=== PATIENT | male | born 1970 | race American Indian/Alaskan Native ===

== ENCOUNTER 2017-09-06 22:34 | Inpatient (IN) | payer MEDICAID, OTHER ==
[2017-09-06 23:00] LABS: Basophils # (Auto) 0.2 K/mm3 (0.0-0.1); Basophils % (Auto) 2.2 % (0.0-1.8); Eosinophils # (Auto) 0.1 K/mm3 (0.0-0.4); Hematocrit 43.2 % (35.5-45.6); Lymphocytes # (Auto) 2.7 K/mm3 (1.2-5.4); Lymphocytes % (Auto) 29.6 % (13.4-35.0); Mean Corpuscular HGB Conc 33 % (32-34); Mean Corpuscular Hemoglobin 27 pg (28-32); Mean Corpuscular Volume 84 fl (84-94); Monocytes # (Auto) 0.5 K/mm3 (0.0-0.8); Monocytes % (Auto) 5.3 % (0.0-7.3); Platelet Count 314 K/mm3 (140-440); Red Blood Count 5.15 M/mm3 (3.65-5.03); Red Cell Distribution Width 14.7 % (13.2-15.2)
--- NOTE | 2017-09-06 23:08 | Emergency Department Report ---
HPI - General Chief Complaint: Neuro Symptoms/Deficit Time Seen by Provider: 09/06/17 22:51 - HPI HPI: Room 1 The patient is a 47-year-old male presenting with chief complaint of chest pain and left-sided weakness. The patient got into his car in his usual state of health approximately 15 minutes later started developing chest pain and difficulty getting out of his car as he experienced weakness on his left side. EMS was called at 21:40 and the patient states he was in his usual state of health approximately 15 minutes prior to that. Patient was of numbness and weakness on the left side in addition to chest pain. 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) Hx of Cancer: Yes (pancreatic CA) Hx Seizures: Yes - Surgical History Past Surgical History?: No - Family History Family history: no significant - Social History Smoking Status: Never Smoker Substance Use Type: None (denies illicit drug use) - Medications Home Medications: Home Medications Medication Instructions Recorded Confirmed Last Taken Type HYDROcodone/APAP 7.5-325 [[place] 1 each PO Q6HR PRN #20 tablet 03/26/14 Unknown Rx 7.5/325 mg] Lisinopril [Zestril TAB] 25 mg PO DAILY 03/26/14 03/26/14 Unknown History Sertraline HCl [Zoloft] 10 mg PO DAILY 03/26/14 03/26/14 Unknown History ED Review of Systems ROS: Stated complaint: CP Other details as noted in HPI Cardiovascular: chest pain Neurological: weakness, paresthesias Physical Exam - Physical Exam Vital Signs: Vital Signs 09/06/17 09/06/17 09/06/17 22:37 22:39 22:46 Pulse Rate 105 H 84 84 Respiratory 26 H 22 24 Rate Physical Exam: GENERAL: The patient is well-developed well-nourished male lying on stretcher appearing to be in mild discomfort. [] HEENT: Normocephalic. Atraumatic. Extraocular motions are intact. Patient has moist mucous membranes. NECK: Supple. Trachea midline CHEST/LUNGS: Clear to auscultation. There is no respiratory distress noted. HEART/CARDIOVASCULAR: Regular. There is no tachycardia. There is no gallop rub or murmur. ABDOMEN: Abdomen is soft, nontender. Patient has normal bowel sounds. There is no abdominal distention. SKIN: There is no rash. There is no edema. There is no diaphoresis. NEURO: The patient is awake, alert, and oriented. The patient is cooperative. Cranial nerves II through XII grossly intact with exception of decreased sensation of the right face (V1, V2, V3 distribution). The patient has somewhat disjointed speech. Patient experiences ataxia with left upper extremity and left lower extremity. Decreased sensation left lower extremity. Patient only able to hold left lower extremity at 30 for 3 seconds before falling back to bed MUSCULOSKELETAL: There is no evidence of acute injury. NIHSS= 6 LOC a. (+)Alert= 0 Not alert but arousable to minor stimuli=1 Not alert requires repeated or strong stimuli to move= 2 Responds only reflex motor or unresponsive=3 b. asks month and age (+)answers both correctly= 0 answers one correctly= 1 answers neither correctly= 2 Best Gaze normal= 0 abnormal in one or both but forced deviation or total paresis absent= 1 forced deviation or total gaze paresis= 2 Visual no visual loss= 0 partial hemianopia= 1 complete hemianopia= 2 bilateral hemianopia= 3 Facial Palsy normal= 0 minor paralysis= 1 partial paralysis= 2 complete paralysis= 3 Motor Arm no drift= 0 drift before 10 secs but doesnt hit bed= 1 some effort against gravity= 2 no effort against gravity= 3 no movement= 4 Motor leg no drift= 0 drift before 5 secs but doesnt hit bed= 1 (+)drifts to bed before 5 secs= 2 no effort against gravity= 3 no movement= 4 Limb ataxia absent=0 present in one limb= 1 (+)present in two limbs= 2 Sensory normal= 0 (+)mild sensory loss= 1 severe (unaware of being touched)= 2 Best language (+)mild/some loss of fluency= 1 severe= 2 mute= 3 Dysarthria normal= 0 slurs some words= 1 severe/unintelligible= 2 Extinction and Inattention no abnormality= 0 visual, tactile, auditory or personal inattention= 1 profound (doesnt recognize own hand or orients to only one side= 2 ED Course Vital Signs 09/06/17 09/06/17 09/06/17 22:37 22:39 22:46 Pulse Rate 105 H 84 84 Respiratory 26 H 22 24 Rate - Reevaluation(s) Reevaluation #1: 09/07/17 00:03 Patient stating he does not wish to stay in the hospital. Patient requesting to be transferred to [facility] since that is where he receives most of his care. - Consultations Consultation #1: 09/06/17 23:10 Tele-neurology paged 09/06/17 23:24 Case discussed with neurologist Dr Jaime- matthew evjannet 09/07/17 00:01 Case discussed with neurologist and family- family refusing TPA Consultation #2: 09/07/17 00:03 [facility] called 09/07/17 00:28 Case discussed with the ED physician Dr. Patel- has spoken with patient's family member. Patient now agrees to stay here at [facility] ED Medical Decision Making - Lab Data Result diagrams: 09/06/17 10:45 09/06/17 10:45 Laboratory Tests 09/06/17 09/06/17 09/06/17 10:45 10:45 10:45 WBC 9.1 RBC 5.15 H Hgb 14.0 Hct 43.2 MCV 84 MCH 27 L MCHC 33 RDW 14.7 Plt Count 314 Lymph % (Auto) 29.6 [place] % (Auto) 5.3 Eos % (Auto) 1.0 Baso % (Auto) 2.2 H Lymph # 2.7 [place] # 0.5 Eos # 0.1 Baso # 0.2 H Seg Neutrophils % 61.9 Seg Neutrophils # 5.6 PT 12.7 INR 0.91 APTT 30.4 Thrombin Time 15.9 Sodium 140 Potassium 4.0 Chloride 101.7 Carbon Dioxide 24 Anion Gap 18 BUN 9 Creatinine 1.0 Estimated GFR > 60 BUN/Creatinine Ratio 9 Glucose 87 Calcium 8.8 Total Creatine Kinase 223 H CK-MB (CK-2) 3.3 CK-MB (CK-2) Rel Index 1.4 Troponin T < 0.010 - EKG Data -: EKG Interpreted by Mo EKG shows normal: sinus rhythm Rate: normal - EKG Data When compared to previous EKG there are: previous EKG unavailable Interpretation: other (no ischemic changes seen) - Radiology Data Radiology results: report reviewed (CT head, CT chest), image reviewed (CT head , chest x-ray, CT chest) interpreted by me: Chest x-ray-no focal infiltrates, no pneumothorax FINAL REPORT PROCEDURE: CT ANGIO CHEST TECHNIQUE: Computerized tomographic angiography of the chest was performed after the IV injection of iodinated nonionic contrast including image processing. The image data was postprocessed using 2-dimensional multiplanar reformatted (MPR) and 3-dimensional (MIP and/or volume rendered) techniques. HISTORY: chest pain, left-sided weakness COMPARISON: No prior studies are available for comparison. FINDINGS: Heart and pericardium: Normal. Thoracic aorta: Normal. Pulmonary vasculature: Normal. Lymph nodes: No enlarged thoracic lymph nodes. Lungs: Lungs are clear and expanded. There are no infiltrates, effusions or pneumothoraces.. Pleural space: No effusion, thickening, or pneumothorax. Musculoskeletal structures: No significant abnormality. Upper abdominal structures: No significant abnormality. IMPRESSION: There is no pulmonary embolism. There is no thoracic aortic aneurysm or dissection. The lungs are clear. Transcribed By: CO Dictated By: ANGELIC GRIGSBY MD Electronically Authenticated By: ANGELIC GRIGSBY MD Signed Date/Time: 09/07/17129 DD/ 9 TD/TT: 09/07/17129 FINAL REPORT PROCEDURE: CT HEAD/BRAIN WO CON TECHNIQUE: Computerized tomography of the head was performed without contrast material. HISTORY: dysarthria, left-sided weakness COMPARISON: No prior studies are available for comparison. FINDINGS: Skull and scalp: Normal. Paranasal sinuses: Normal. Ventricles and subarachnoid spaces: Normal. Cerebrum: No evidence of hemorrhage, acute infarction or mass . Cerebellum and brainstem: No evidence of hemorrhage, acute infarction or mass. Vasculature: Normal. Comments: None. IMPRESSION: Normal Examination Transcribed By: CO Dictated By: ANGELIC GRIGSBY MD Electronically Authenticated By: ANGELIC GRIGSBY MD Signed Date/Time: 09/06/172304 DD/ 04 TD/TT: 09/06/172304 - Differential Diagnosis CVA, ICH, dissection Critical care attestation.: If time is entered above; I have spent that time in minutes in the direct care of this critically ill patient, excluding procedure time. ED Disposition Clinical Impression: CVA (cerebral vascular accident), Altered mental status Disposition: -09 OP ADMIT IP TO THIS HOSP Is pt being admited?: Yes Does the pt Need Aspirin: Yes Condition: Serious Referrals: SONIA OSCAR MD [Primary Care Provider] - 3-5 Days Time of Disposition: 01:59 (hospitalist paged (Dr. Mi Ennis))
[2017-09-06 23:14] LABS: Creatine Kinase MB 3.3 ng/mL (0.0-4.0)
[2017-09-06 23:15] LABS: BUN/Creatinine Ratio 9; Blood Urea Nitrogen 9 mg/dL (9-20); Calcium 8.8 mg/dL (8.4-10.2); Hemolysis Index 4; INR 0.91 (0.87-1.13); Partial Thromboplastin Time 30.4 Sec. (24.2-36.6); Thrombin Time 15.9 Sec. (15.1-19.6)
[2017-09-07] MEDS ORDERED: MORPHINE IV ONE (00:26)
[2017-09-07] MEDS ORDERED: ZOFRAN IV ONE (00:26)
[2017-09-07] MEDS ORDERED: SUBLIMAZE IV ONE (00:40)
--- NOTE | 2017-09-07 01:35 | Cat Scan Report ---
FINAL REPORT PROCEDURE: CT ANGIO CHEST TECHNIQUE: Computerized tomographic angiography of the chest was performed after the IV injection of iodinated nonionic contrast including image processing. The image data was postprocessed using 2-dimensional multiplanar reformatted (MPR) and 3-dimensional (MIP and/or volume rendered) techniques. HISTORY: chest pain, left-sided weakness COMPARISON: No prior studies are available for comparison. FINDINGS: Heart and pericardium: Normal. Thoracic aorta: Normal. Pulmonary vasculature: Normal. Lymph nodes: No enlarged thoracic lymph nodes. Lungs: Lungs are clear and expanded. There are no infiltrates, effusions or pneumothoraces.. Pleural space: No effusion, thickening, or pneumothorax. Musculoskeletal structures: No significant abnormality. Upper abdominal structures: No significant abnormality. IMPRESSION: There is no pulmonary embolism. There is no thoracic aortic aneurysm or dissection. The lungs are clear.
--- NOTE | 2017-09-07 01:59 | XRay Report ---
FINAL REPORT PROCEDURE: XR CHEST 1V AP TECHNIQUE: Chest radiograph anteroposterior view. CPT 18333 HISTORY: chest pain COMPARISON: No prior studies are available for comparison. FINDINGS: Heart: Enlarged Mediastinum/Vessels: Normal. Lungs/Pleural space: There is suboptimal inspiration. There are no infiltrates, effusions or pneumothoraces.. Bony thorax: No acute osseous abnormality. Life support devices: None. IMPRESSION: No acute cardiopulmonary abnormality.
[2017-09-07] MEDS ORDERED: ZOFRAN IV PRN (04:50)
[2017-09-07] MEDS ORDERED: TYLENOL PO PRN (04:50)
[2017-09-07] MEDS ORDERED: SODIUM CHLORIDE FLUSH SYRINGE 10 ML IV PRN (04:50)
[2017-09-07] MEDS ORDERED: TYLENOL PR PRN (04:50)
[2017-09-07 05:45] LABS: Creatine Kinase MB 2.8 ng/mL (0.0-4.0)
--- NOTE | 2017-09-07 06:38 | History and Physical Report ---
History of Present Illness Date of examination: 09/07/17 Date of admission: 09/07/17 04:50 History of present illness: 46-year-old man with a history of previous CVA, residual right-sided weakness, hypertension, pancreatic cancer, seizure comes emergency room with complaints of left-sided weakness and slurred speech which started while he was in the emergency room. Telemetry neurologist was consulted, TPA was indicated but the family refused. He also complained of chest pain, described as a tightness, intermittent for a few seconds, intensity 5/10, radiating to the left arm. Admits to shortness of breath, no nausea vomiting, diaphoresis or palpitation Review of systems Constitutional: no weight loss, chills Ears, eyes, nose, mouth and throat: no nasal congestion, no nasal discharge, no sinus pressure, no vision change, no red eye. Neck: No neck pain or rigidity. Cardiovascular: no chest pain, palpitations Respiratory: No cough, shortness of breath Gastrointestinal: no abdominal pain, hematochezia Genitourinary : no dysuria, frequency , no hematuria Musculoskeletal: no joint swelling or muscle ache Integumentary: no rash, no pruritis Neurological: no parathesias, no numbness Endocrine: no cold or heat intolerance, no polyuria or polydipsia Hematologic/Lymphatic: no easy bruising, no easy bleeding, no gland swelling Allergic/Immunologic: no urticaria, no angioedema. PAST MEDICAL HISTORY:CVA, residual right-sided weakness, hypertension, pancreatic cancer, seizure PAST SURGICAL HISTORY: None SOCIAL HISTORY: Denies alcohol, tobacco, drugs FAMILY HISTORY: Hypertension Medications and Allergies Allergies Allergy/AdvReac Type Severity Reaction Status Date / Time Penicillins Allergy Severe Anaphylaxis Verified 09/07/17 06:17 Home Medications Medication Instructions Recorded Confirmed Last Taken Type HYDROcodone/APAP 7.5-325 [[place] 1 each PO Q6HR PRN #20 tablet 03/26/14 Unknown Rx 7.5/325 mg] Lisinopril [Zestril TAB] 25 mg PO DAILY 03/26/14 03/26/14 Unknown History Sertraline HCl [Zoloft] 10 mg PO DAILY 03/26/14 03/26/14 Unknown History Active Meds: Active Medications Acetaminophen (Tylenol) 650 mg PO Q4H PRN PRN Reason: Pain, Mild (1-3) Acetaminophen (Tylenol) 650 mg NM Q4H PRN PRN Reason: Pain, Mild (1-3) Aspirin (Aspirin) 325 mg PO QDAY ELAINE Enoxaparin Sodium (Lovenox) 30 mg SUB-Q QDAY ELAINE Ondansetron HCl (Zofran) 4 mg IV Q8H PRN PRN Reason: N/V unrelieved by Reglan Sodium Chloride (Sodium Chloride Flush Syringe 10 Ml) 10 ml IV PRN PRN PRN Reason: LINE FLUSH Exam - Physical Exam Narrative exam: Gen. appearance: Patient lying in bed, no apparent distress HEENT: Normocephalic, atraumatic, pupils equally round and reactive to light, extraocular movement intact, and no sclericterus,. No JVD or thyromegaly or nodule,neck supple, no carotid bruit ,mucous membranes moist, no exudate or erythema Heart: S1, S2, regular rate and rhythm Lungs: Clear to auscultation bilaterally, breathing comfortable Abdomen: Positive bowel sounds, nontender, nondistended, no organomegaly Extremity: No edema, cyanosis, clubbing Skin: No rash, nodules, warm, dry Neuro: Oriented 3, cranial nerves II-12 intact, speech is fluent, motor- poor effort and sensory intact - Constitutional Vitals: Temp Pulse Resp BP Pulse Ox 97.7 F 65 18 139/83 96 09/07/17 06:11 09/07/17 06:11 09/07/17 06:11 09/07/17 06:11 09/07/17 06:11 Results - Labs CBC & Chem 7: 09/06/17 10:45 09/06/17 10:45 Labs: Abnormal lab results 09/06/17 09/06/17 09/07/17 Range/Units 10:45 10:45 05:20 RBC 5.15 H (3.65-5.03) M/mm3 MCH 27 L (28-32) pg Baso % (Auto) 2.2 H (0.0-1.8) % Baso # 0.2 H (0.0-0.1) K/mm3 Total Creatine Kinase 223 H 187 H (55-170) units/L - Imaging and Cardiology CT scan - chest: report reviewed CT Scan - head: report reviewed Assessment and Plan Assessment CVA Chest pain Hypertension History of pancreatic cancer History of CVA Seizure Plan Admit to medicine Obtain MRI of the head, MRA, echo Do neuro checks, swallow screen [place] Work[employer] neurology, physical and occupational therapy Check cardiac enzymes Start aspirin, statin, DVT prophylaxis
[2017-09-07] MEDS ORDERED: LOVENOX SUB-Q SCH (10:00)
--- NOTE | 2017-09-07 11:10 | Magnetic Resonance Report ---
MRI OF THE BRAIN WITHOUT CONTRAST: HISTORY: Stroke PROCEDURE: Multiplanar, multisequence MR imaging of the brain without IV contrast was performed. FINDINGS: Compared to the CT head without contrast performed 09/06/17. On diffusion image 11, there are 2 tiny foci of subtle increased diffusion signal and decreased signal on the ADC map in the left alex. This could represent tiny areas of subacute ischemia. These areas measure less than 3 mm in diameter. The remaining brain parenchyma demonstrates normal signal on all sequences. No evidence for hemorrhage or mass. No chronic infarct or extra-axial fluid collection. The midline structures are central. The basal cisterns are patent. Normal ventricular size. The orbital cavities and sella turcica demonstrate no abnormality. The visualized paranasal sinuses and mastoid air cells are well aerated. IMPRESSION: 2 tiny foci subacute ischemia are suspected in the left alex as outlined above. Please correlate with the clinical presentation of the patient
--- NOTE | 2017-09-07 11:11 | Magnetic Resonance Report ---
MRA HEAD WITHOUT CONTRAST HISTORY: Stroke. [id number] imaging with MIP reformations of [place] is submitted. The arteries appear widely patent and free of hemodynamically significant stenosis, aneurysm or dissection. Large bilateral posterior commuting dictating arteries are identified. The bilateral P1 segments are hypoplastic but visualized bilaterally. IMPRESSION: Normal variant MRA of the head.
[2017-09-07] MEDS: ASPIRIN PO SCH (11:23)
[2017-09-07] MEDS: LOVENOX SUB-Q SCH (11:24)
[2017-09-07 11:46] LABS: Creatine Kinase MB 2.6 ng/mL (0.0-4.0)
--- NOTE | 2017-09-07 13:32 | Progress Note ---
Assessment and Plan Assessment and plan: Acute CVA. ? Non-fluent aphasia. F/U MRI/MRA of head. Follow up echocardiogram. Neurology consultation pending. PT/OT. Chest pain. Follow to them to monitoring and cardiac enzymes Hypertension. Continue antihypertensive medications History of pancreatic cancer History of CVA Seizure. Seizure precautions History Interval history: No new issues overnight Hospitalist Physical - Constitutional Vitals: Temp Pulse Resp BP Pulse Ox 98.5 F 77 18 136/84 93 09/07/17 12:13 09/07/17 12:13 09/07/17 12:13 09/07/17 12:13 09/07/17 12:13 General appearance: Present: no acute distress, well-nourished - EENT Eyes: Present: PERRL, EOM intact ENT: hearing intact, clear oral mucosa, dentition normal - Neck Neck: Present: supple, normal ROM - Respiratory Respiratory effort: normal Respiratory: bilateral: CTA - Cardiovascular Rhythm: regular Heart Sounds: Present: S1 & S2. Absent: gallop, rub - Extremities Extremities: no ischemia, No edema, Full ROM - Abdominal General gastrointestinal: soft, non-tender, non-distended, normal bowel sounds - Integumentary Integumentary: Present: clear, warm, dry - Neurologic Neurologic: CNII-XII intact, moves all extremities (spastic movements), other ( stuttering) Results - Labs CBC & Chem 7: 09/06/17 10:45 09/06/17 10:45 Labs: Laboratory Last Values WBC 9.1 K/mm3 (4.5-11.0) 09/06/17 10:45 RBC 5.15 M/mm3 (3.65-5.03) H 09/06/17 10:45 Hgb 14.0 gm/dl (11.8-15.2) 09/06/17 10:45 Hct 43.2 % (35.5-45.6) 09/06/17 10:45 MCV 84 fl (84-94) 09/06/17 10:45 MCH 27 pg (28-32) L 09/06/17 10:45 MCHC 33 % (32-34) 09/06/17 10:45 RDW 14.7 % (13.2-15.2) 09/06/17 10:45 Plt Count 314 K/mm3 (140-440) 09/06/17 10:45 Lymph % (Auto) 29.6 % (13.4-35.0) 09/06/17 10:45 [place] % (Auto) 5.3 % (0.0-7.3) 09/06/17 10:45 Eos % (Auto) 1.0 % (0.0-4.3) 09/06/17 10:45 Baso % (Auto) 2.2 % (0.0-1.8) H 09/06/17 10:45 Lymph # 2.7 K/mm3 (1.2-5.4) 09/06/17 10:45 [place] # 0.5 K/mm3 (0.0-0.8) 09/06/17 10:45 Eos # 0.1 K/mm3 (0.0-0.4) 09/06/17 10:45 Baso # 0.2 K/mm3 (0.0-0.1) H 09/06/17 10:45 Seg Neutrophils % 61.9 % (40.0-70.0) 09/06/17 10:45 Seg Neutrophils # 5.6 K/mm3 (1.8-7.7) 09/06/17 10:45 PT 12.7 Sec. (12.2-14.9) 09/06/17 10:45 INR 0.91 (0.87-1.13) 09/06/17 10:45 APTT 30.4 Sec. (24.2-36.6) 09/06/17 10:45 Thrombin Time 15.9 Sec. (15.1-19.6) 09/06/17 10:45 Sodium 140 mmol/L (137-145) 09/06/17 10:45 Potassium 4.0 mmol/L (3.6-5.0) 09/06/17 10:45 Chloride 101.7 mmol/L (98-107) 09/06/17 10:45 Carbon Dioxide 24 mmol/L (22-30) 09/06/17 10:45 Anion Gap 18 mmol/L 09/06/17 10:45 BUN 9 mg/dL (9-20) 09/06/17 10:45 Creatinine 1.0 mg/dL (0.8-1.5) 09/06/17 10:45 Estimated GFR > 60 ml/min 09/06/17 10:45 BUN/Creatinine Ratio 9 % 09/06/17 10:45 Glucose 87 mg/dL (75-100) 09/06/17 10:45 POC Glucose 65 (70-105) L 09/06/17 22:52 Calcium 8.8 mg/dL (8.4-10.2) 09/06/17 10:45 Total Creatine Kinase 166 units/L (55-170) 09/07/17 10:50 CK-MB (CK-2) 2.6 ng/mL (0.0-4.0) 09/07/17 10:50 CK-MB (CK-2) Rel Index 1.5 (0-4) 09/07/17 10:50 Troponin T < 0.010 ng/mL (0.00-0.029) 09/07/17 10:50
[2017-09-07] MEDS: PRAVACHOL PO SCH (22:40)
[2017-09-08 07:52] LABS: Chol/HDL Ratio 6.62 %
[2017-09-08] MEDS: ASPIRIN PO SCH (09:52)
[2017-09-08] MEDS: LOVENOX SUB-Q SCH (09:52)
--- NOTE | 2017-09-08 10:19 | Progress Note ---
Assessment and Plan Assessment and plan: Acute CVA. ? Non-fluent aphasia. On admission, Telemetry neurologist was consulted, TPA was indicated but the family refused. MRI/MRA of head reveals 2 tiny foci of subacute ischemia in the left alex. Echocardiogram reveals normal EF of 50-55%. No significant valvular abnormalities. Neurology consultation pending. PT/OT. Hypertension. Continue antihypertensive medications History of pancreatic cancer History of CVA Seizure. Seizure precautions History Interval history: No new issues overnight Hospitalist Physical - Constitutional Vitals: Temp Pulse Resp BP Pulse Ox 98.2 F 63 20 114/76 98 09/08/17 08:03 09/08/17 08:03 09/08/17 08:03 09/08/17 08:03 09/08/17 08:03 General appearance: Present: no acute distress, well-nourished - EENT Eyes: Present: PERRL, EOM intact ENT: hearing intact, clear oral mucosa, dentition normal - Neck Neck: Present: supple, normal ROM - Respiratory Respiratory effort: normal Respiratory: bilateral: CTA - Cardiovascular Rhythm: regular Heart Sounds: Present: S1 & S2. Absent: gallop, rub - Extremities Extremities: no ischemia, No edema, Full ROM - Abdominal General gastrointestinal: soft, non-tender, non-distended, normal bowel sounds - Integumentary Integumentary: Present: clear, warm, dry - Neurologic Neurologic: CNII-XII intact, moves all extremities Results - Labs CBC & Chem 7: 09/06/17 10:45 09/06/17 10:45 Labs: Laboratory Last Values WBC 9.1 K/mm3 (4.5-11.0) 09/06/17 10:45 RBC 5.15 M/mm3 (3.65-5.03) H 09/06/17 10:45 Hgb 14.0 gm/dl (11.8-15.2) 09/06/17 10:45 Hct 43.2 % (35.5-45.6) 09/06/17 10:45 MCV 84 fl (84-94) 09/06/17 10:45 MCH 27 pg (28-32) L 09/06/17 10:45 MCHC 33 % (32-34) 09/06/17 10:45 RDW 14.7 % (13.2-15.2) 09/06/17 10:45 Plt Count 314 K/mm3 (140-440) 09/06/17 10:45 Lymph % (Auto) 29.6 % (13.4-35.0) 09/06/17 10:45 [place] % (Auto) 5.3 % (0.0-7.3) 09/06/17 10:45 Eos % (Auto) 1.0 % (0.0-4.3) 09/06/17 10:45 Baso % (Auto) 2.2 % (0.0-1.8) H 09/06/17 10:45 Lymph # 2.7 K/mm3 (1.2-5.4) 09/06/17 10:45 [place] # 0.5 K/mm3 (0.0-0.8) 09/06/17 10:45 Eos # 0.1 K/mm3 (0.0-0.4) 09/06/17 10:45 Baso # 0.2 K/mm3 (0.0-0.1) H 09/06/17 10:45 Seg Neutrophils % 61.9 % (40.0-70.0) 09/06/17 10:45 Seg Neutrophils # 5.6 K/mm3 (1.8-7.7) 09/06/17 10:45 PT 12.7 Sec. (12.2-14.9) 09/06/17 10:45 INR 0.91 (0.87-1.13) 09/06/17 10:45 APTT 30.4 Sec. (24.2-36.6) 09/06/17 10:45 Thrombin Time 15.9 Sec. (15.1-19.6) 09/06/17 10:45 Sodium 140 mmol/L (137-145) 09/06/17 10:45 Potassium 4.0 mmol/L (3.6-5.0) 09/06/17 10:45 Chloride 101.7 mmol/L (98-107) 09/06/17 10:45 Carbon Dioxide 24 mmol/L (22-30) 09/06/17 10:45 Anion Gap 18 mmol/L 09/06/17 10:45 BUN 9 mg/dL (9-20) 09/06/17 10:45 Creatinine 1.0 mg/dL (0.8-1.5) 09/06/17 10:45 Estimated GFR > 60 ml/min 09/06/17 10:45 BUN/Creatinine Ratio 9 % 09/06/17 10:45 Glucose 87 mg/dL (75-100) 09/06/17 10:45 POC Glucose 65 (70-105) L 09/06/17 22:52 Calcium 8.8 mg/dL (8.4-10.2) 09/06/17 10:45 Total Creatine Kinase 166 units/L (55-170) 09/07/17 10:50 CK-MB (CK-2) 2.6 ng/mL (0.0-4.0) 09/07/17 10:50 CK-MB (CK-2) Rel Index 1.5 (0-4) 09/07/17 10:50 Troponin T < 0.010 ng/mL (0.00-0.029) 09/07/17 10:50 Triglycerides 137 mg/dL (2-149) 09/08/17 07:03 Cholesterol 232 mg/dL (50-199) H 09/08/17 07:03 LDL Cholesterol Direct 179 mg/dL (50-130) H 09/08/17 07:03 HDL Cholesterol 35 mg/dL (40-59) L 09/08/17 07:03 Cholesterol/HDL Ratio 6.62 % 09/08/17 07:03
--- NOTE | 2017-09-08 11:25 | History and Physical Report ---
History of Present Illness Date of examination: 09/08/17 Date of admission: 09/07/17 04:50 Chief complaint: Slurry speech and right side weakness. History of present illness: 46-year-old left handed male with a history of previous CVA, residual right-sided weakness, hypertension, pancreatic cancer, seizure comes to the emergency room with complaints of chest pains. He developed left-sided weakness and slurred speech while he was in the emergency room. Telemetry neurologist was consulted, TPA was indicated but the family refused. He was admitted for further management. He took Aspirin at home since his previous CVA. He has history of seizure, last seizure one years ago. He was on Keppra, probably focal seizure with conscious impairment. Past History Past Medical History: hypertension, hyperlipidemia, seizures, stroke Past Surgical History: Other (Hands injuries.) Social history: no significant social history Family history: diabetes, hypertension, stroke Medications and Allergies Allergies Allergy/AdvReac Type Severity Reaction Status Date / Time Penicillins Allergy Severe Anaphylaxis Verified 09/07/17 06:17 Home Medications Medication Instructions Recorded Confirmed Last Taken Type HYDROcodone/APAP 7.5-325 [[place] 1 each PO Q6HR PRN #20 tablet 03/26/14 09/07/17 Unknown Rx 7.5/325 mg] Lisinopril [Zestril TAB] 25 mg PO DAILY 03/26/14 09/07/17 Unknown History Sertraline HCl [Zoloft] 10 mg PO DAILY 03/26/14 09/07/17 Unknown History Aspir-Low 81 mg PO DAILY 09/07/17 09/07/17 Unknown History Active Meds: Active Medications Acetaminophen (Tylenol) 650 mg PO Q4H PRN PRN Reason: Pain, Mild (1-3) Acetaminophen (Tylenol) 650 mg HI Q4H PRN PRN Reason: Pain, Mild (1-3) Aspirin (Aspirin) 325 mg PO QDAY [facility] Last Admin: 09/08/17 09:52 Dose: 325 mg Enoxaparin Sodium (Lovenox) 40 mg SUB-Q QDAY@1000 [facility] Last Admin: 09/08/17 09:52 Dose: 40 mg Ondansetron HCl (Zofran) 4 mg IV Q8H PRN PRN Reason: N/V unrelieved by Claudia Pravastatin Sodium (Pravachol) 20 mg PO QHS [facility] Last Admin: 09/07/17 22:40 Dose: 20 mg Sodium Chloride (Sodium Chloride Flush Syringe 10 Ml) 10 ml IV PRN PRN PRN Reason: LINE FLUSH Review of Systems Neurological: weakness, numbness, change in speech (All other 10 points of systems are reviewed and negative.) Physical Examination - Vital Signs Vital Signs: Vital Signs Pulse Resp 105 H 26 H 09/06/17 22:37 09/06/17 22:37 - Constitutional General appearance: comfortable - EENT EENT: Present: PERRL, mucous membranes moist, vision intact - Respiratory Respiratory: Present: lungs clear, normal breath sounds, no respiratory distress - Cardiovascular Cardiovascular: Present: regular rate, no murmurs Extremities: Present: no peripheral edema bilatateraly, no clubbing, cyanosis, no inflammation, no ischemia or petechiae - Gastrointestinal Gastrointestinal: Present: normoactive bowel sounds, soft, non-tender - Integumentary Integumentary: Present: normal - Neurologic Cranial nerve examination: PERRL, EOMI Speech examination: other (dysarthric.) Motor examination - right side: 2/5: hip flexors, knee extensors, dorsiflexion, toe extension (EHL), plantarflexion, 4/5: biceps, triceps, wrist flexion, wrist extension, claim adjuster Motor examination - left side: 4/5: biceps, triceps, wrist flexion, wrist extension, claim adjuster, hip flexors, knee extensors, dorsiflexion, toe extension (EHL) , plantarflexion Detailed sensory examination: light touch (Decreased left side.) Reflex and gait examination: other (deferred.) Reflexes: 1+: ankle, bicep, knee, tricep Cerebellar examination: other (clumsy FTN/HTS due to weakness.) Results - Laboratory Findings CBC and BMP: 09/06/17 10:45 09/06/17 10:45 Abnormal Lab Findings: Abnormal Labs 09/06/17 09/06/17 09/06/17 10:45 10:45 22:52 RBC 5.15 H MCH 27 L Baso % (Auto) 2.2 H Baso # 0.2 H POC Glucose 65 L Total Creatine Kinase 223 H Cholesterol LDL Cholesterol Direct HDL Cholesterol 09/07/17 09/08/17 05:20 07:03 RBC MCH Baso % (Auto) Baso # POC Glucose Total Creatine Kinase 187 H Cholesterol 232 H LDL Cholesterol Direct 179 H HDL Cholesterol 35 L Assessment and Plan 1. Acute left alex ischemic infarcts. OT/PT, rehab and speech pathology. His NIHSS, dysarthric speech 2, left side decreased sensation 1, left side drift 2+2 , total 7. 2. HTN. Can optimize. CVA > 48 hours. 3. Dyslipidemia. Statin. 4. Carotid doppler, echo. 5. Obesity. Exercise and lose weight. 6. Treat risk factors of CVA. Baby aspirin 81 mg q am, plavix 75 mg q hs for 3 months, then plavix only or follow neurology suggestion. 7. If D/C, F/U with neurology in 6-8 weeks. 8. Continue Keppra 500 mg bid. 9. Plan discussed with him. 10. Will follow up with you.
[2017-09-08] MEDS ORDERED: MIRALAX 3350 PO ONE (20:30)
[2017-09-08] MEDS: PRAVACHOL PO SCH (22:24)
[2017-09-08] MEDS: KEPPRA PO SCH (22:25)
[2017-09-09] MEDS: LOVENOX SUB-Q SCH (10:00)
[2017-09-09] MEDS: KEPPRA PO SCH ×2 (10:00→22:50)
[2017-09-09] MEDS: ASPIRIN PO SCH (10:00)
--- NOTE | 2017-09-09 12:53 | Progress Note ---
Assessment and Plan 1. Acute left alex ischemic infarcts. OT/PT, rehab and speech pathology. His NIHSS, dysarthric speech 2, left side decreased sensation 1, left side drift 2+2 , total 7. 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 2. HTN. Contralled, medicine. 3. Dyslipidemia. Statin. 4. Carotid doppler, <50 % stenosis. Pending echo. If TTE negative, need PIA. 5. Obesity. Exercise and lose weight. 6. Treat risk factors of CVA. Baby aspirin 81 mg q am, plavix 75 mg q hs for 3 months, then plavix only or follow neurology suggestion. 7. If D/C, F/U with neurology in 6-8 weeks. 8. Continue Keppra 500 mg bid. 9. Plan discussed with him. 10. Will follow up with you PRN. Subjective Date of service: 09/09/17 (Improved.) Principal diagnosis: CVA. Interval history: Speech and weakness improved. Objective - Vital Sign Vital Signs - 12hr 09/09/17 09/09/17 09/09/17 01:12 05:01 06:00 Temperature 97.7 F 98.5 F Pulse Rate 73 77 70 Respiratory 20 20 Rate Blood Pressure 127/81 118/79 O2 Sat by Pulse 93 91 Oximetry 09/09/17 09/09/17 09/09/17 07:53 08:42 10:17 Temperature 98.7 F Pulse Rate 83 66 Respiratory 20 18 Rate Blood Pressure 120/89 O2 Sat by Pulse 95 Oximetry 09/09/17 12:16 Temperature 98.3 F Pulse Rate Respiratory 20 Rate Blood Pressure 144/96 O2 Sat by Pulse Oximetry - General Apperance Constitutional: comfortable - EENT EENT: PERRL, mucous membranes moist - Respiratory Respiratory: chest non-tender, lungs clear, normal breath sounds - Cardiovascular Cardiovascular: regular rate, no murmurs Extremities: no peripheral edema bilat, no clubbing, cyanosis, no inflammation - Gastrointestinal Gastrointestinal: normoactive bowel sounds, soft, non-tender, non-distended - Integumentary Integumentary: normal - Neurologic Detailed motor examination: other (Right upper 3/5, rest all motor 4/5.) Detailed sensory examination: other (Decreased sensation in the right leg.) Reflexes: 1+: ankle, bicep, knee, tricep - Laboratory Findings CBC and BMP: 09/06/17 10:45 09/06/17 10:45 Abnormal Lab Findings: Abnormal Labs 09/06/17 09/06/17 09/06/17 10:45 10:45 22:52 RBC 5.15 H MCH 27 L Baso % (Auto) 2.2 H Baso # 0.2 H POC Glucose 65 L Total Creatine Kinase 223 H Cholesterol LDL Cholesterol Direct HDL Cholesterol 09/07/17 09/08/17 05:20 07:03 RBC MCH Baso % (Auto) Baso # POC Glucose Total Creatine Kinase 187 H Cholesterol 232 H LDL Cholesterol Direct 179 H HDL Cholesterol 35 L
--- NOTE | 2017-09-09 13:45 | Progress Note ---
Assessment and Plan Assessment and plan: --Acute CVA. ? Non-fluent aphasia. On admission, Telemetry neurologist was consulted, TPA was indicated but the family refused. MRI/MRA of head reveals 2 tiny foci of subacute ischemia in the left alex. Echocardiogram reveals normal EF of 50-55%. No significant valvular abnormalities. Neurology consultation pending. PT/OT. --Hypertension. Continue antihypertensive medications --History of pancreatic cancer --History of CVA --Seizure. Seizure precautions Follow neuro workup, neurology recommendations Physical therapy occupational therapy DC planning. Case management History Interval history: Patient seen and evaluated medical records reviewed No new events reported by nursing staff Neuro workup is in progress Alert awake oriented 3 Vital signs reviewed Hospitalist Physical - Constitutional Vitals: Temp Pulse Resp BP Pulse Ox 98.3 F 66 20 144/96 95 09/09/17 12:16 09/09/17 10:17 09/09/17 12:16 09/09/17 12:16 09/09/17 07:53 General appearance: Present: no acute distress, well-nourished - EENT Eyes: Present: PERRL, EOM intact - Neck Neck: Present: supple, normal ROM - Respiratory Respiratory effort: normal Respiratory: bilateral: diminished, negative: rales, rhonchi, wheezing - Cardiovascular Rhythm: regular Heart Sounds: Present: S1 & S2 - Extremities Extremities: no ischemia, No edema - Abdominal General gastrointestinal: soft, non-tender, non-distended, normal bowel sounds - Integumentary Integumentary: Present: clear, warm - Psychiatric Psychiatric: appropriate mood/affect, cooperative - Neurologic Neurologic: moves all extremities Results - Labs CBC & Chem 7: 09/06/17 10:45 09/06/17 10:45 Labs: Laboratory Last Values WBC 9.1 K/mm3 (4.5-11.0) 09/06/17 10:45 RBC 5.15 M/mm3 (3.65-5.03) H 09/06/17 10:45 Hgb 14.0 gm/dl (11.8-15.2) 09/06/17 10:45 Hct 43.2 % (35.5-45.6) 09/06/17 10:45 MCV 84 fl (84-94) 09/06/17 10:45 MCH 27 pg (28-32) L 09/06/17 10:45 MCHC 33 % (32-34) 09/06/17 10:45 RDW 14.7 % (13.2-15.2) 09/06/17 10:45 Plt Count 314 K/mm3 (140-440) 09/06/17 10:45 Lymph % (Auto) 29.6 % (13.4-35.0) 09/06/17 10:45 [place] % (Auto) 5.3 % (0.0-7.3) 09/06/17 10:45 Eos % (Auto) 1.0 % (0.0-4.3) 09/06/17 10:45 Baso % (Auto) 2.2 % (0.0-1.8) H 09/06/17 10:45 Lymph # 2.7 K/mm3 (1.2-5.4) 09/06/17 10:45 [place] # 0.5 K/mm3 (0.0-0.8) 09/06/17 10:45 Eos # 0.1 K/mm3 (0.0-0.4) 09/06/17 10:45 Baso # 0.2 K/mm3 (0.0-0.1) H 09/06/17 10:45 Seg Neutrophils % 61.9 % (40.0-70.0) 09/06/17 10:45 Seg Neutrophils # 5.6 K/mm3 (1.8-7.7) 09/06/17 10:45 PT 12.7 Sec. (12.2-14.9) 09/06/17 10:45 INR 0.91 (0.87-1.13) 09/06/17 10:45 APTT 30.4 Sec. (24.2-36.6) 09/06/17 10:45 Thrombin Time 15.9 Sec. (15.1-19.6) 09/06/17 10:45 Sodium 140 mmol/L (137-145) 09/06/17 10:45 Potassium 4.0 mmol/L (3.6-5.0) 09/06/17 10:45 Chloride 101.7 mmol/L (98-107) 09/06/17 10:45 Carbon Dioxide 24 mmol/L (22-30) 09/06/17 10:45 Anion Gap 18 mmol/L 09/06/17 10:45 BUN 9 mg/dL (9-20) 09/06/17 10:45 Creatinine 1.0 mg/dL (0.8-1.5) 09/06/17 10:45 Estimated GFR > 60 ml/min 09/06/17 10:45 BUN/Creatinine Ratio 9 % 09/06/17 10:45 Glucose 87 mg/dL (75-100) 09/06/17 10:45 POC Glucose 65 (70-105) L 09/06/17 22:52 Calcium 8.8 mg/dL (8.4-10.2) 09/06/17 10:45 Total Creatine Kinase 166 units/L (55-170) 09/07/17 10:50 CK-MB (CK-2) 2.6 ng/mL (0.0-4.0) 09/07/17 10:50 CK-MB (CK-2) Rel Index 1.5 (0-4) 09/07/17 10:50 Troponin T < 0.010 ng/mL (0.00-0.029) 09/07/17 10:50 Triglycerides 137 mg/dL (2-149) 09/08/17 07:03 Cholesterol 232 mg/dL (50-199) H 09/08/17 07:03 LDL Cholesterol Direct 179 mg/dL (50-130) H 09/08/17 07:03 HDL Cholesterol 35 mg/dL (40-59) L 09/08/17 07:03 Cholesterol/HDL Ratio 6.62 % 09/08/17 07:03
[2017-09-09] MEDS: PRAVACHOL PO SCH (22:50)
[2017-09-10] MEDS: LOVENOX SUB-Q SCH (12:07)
[2017-09-10] MEDS: KEPPRA PO SCH ×2 (12:08→22:27)
[2017-09-10] MEDS: ASPIRIN PO SCH (12:08)
--- NOTE | 2017-09-10 14:27 | Progress Note ---
Assessment and Plan 1. Acute left alex ischemic infarcts. OT/PT, rehab and speech pathology. He didn 't comply with his medicine well. Education and need to strictly comply with all his medicines. 2. HTN. Controlled, medicine. 3. Dyslipidemia. Statin. 4. Pending official Carotid Doppler report. Echo EF 50-55%, limited study, suggest PIA. 5. Obesity. Exercise and lose weight. 6. Treat risk factors of CVA. Baby aspirin 81 mg q am, plavix 75 mg q hs for 3 months, then plavix only or follow neurology suggestion. 7. If D/C, F/U with neurology in 6-8 weeks. 8. H/O seizure. Last one one year ago. Continue Keppra 500 mg bid. 9. Plan discussed with him and his mother. 10. Will follow up with you PRN. 11. If D/C, F/U with neurology in 6-8 weeks. Subjective Principal diagnosis: CVA. Objective - Vital Sign Vital Signs - 12hr 09/10/17 09/10/17 09/10/17 04:38 08:35 12:09 Temperature 98.4 F 98.8 F Pulse Rate 86 91 H 92 H Respiratory 18 18 Rate Blood Pressure 119/97 140/99 143/92 O2 Sat by Pulse 94 93 94 Oximetry - Laboratory Findings CBC and BMP: 09/06/17 10:45 09/06/17 10:45 Abnormal Lab Findings: Abnormal Labs 09/06/17 09/06/17 09/06/17 10:45 10:45 22:52 RBC 5.15 H MCH 27 L Baso % (Auto) 2.2 H Baso # 0.2 H POC Glucose 65 L Total Creatine Kinase 223 H Cholesterol LDL Cholesterol Direct HDL Cholesterol 09/07/17 09/08/17 05:20 07:03 RBC MCH Baso % (Auto) Baso # POC Glucose Total Creatine Kinase 187 H Cholesterol 232 H LDL Cholesterol Direct 179 H HDL Cholesterol 35 L
--- NOTE | 2017-09-10 16:31 | Progress Note ---
Assessment and Plan Assessment and plan: --Acute CVA : Non-fluent aphasia. On admission, Telemetry neurologist was consulted, TPA was indicated but the family refused. MRI/MRA of head reveals 2 tiny foci of subacute ischemia in the left alex. Echocardiogram reveals normal EF of 50-55%. Neurology following the patient, scheduled PIA, as recommended by neurology Discussed with cardiology, cardiology who does PIA is available on 09/12/2017 --Recurrent CVA with residual weakness; neuro workup thus far reviewed, follow PIA --Hypertension : Well controlled Continue antihypertensive medications --History of pancreatic cancer; stable --History of CVA with residual right-sided weakness, PTOT --Seizure. Seizure precautions, continue current medications Continue Physical therapy occupational therapy Plan of care reviewed with the patient and his fiance at the bedside Answered all their questions verbalized understanding History Interval history: Patient seen and examined medical records reviewed No new events reported by the nursing staff Received physical therapy, PT recommend skilled physical therapy upon discharge Patient feels slightly better no new complaints Vital signs reviewed Alert awake oriented 3 not in acute distress Hospitalist Physical - Constitutional Vitals: Temp Pulse Resp BP Pulse Ox 98.8 F 92 H 16 143/92 94 09/10/17 08:35 09/10/17 12:09 09/10/17 10:00 09/10/17 12:09 09/10/17 12:09 General appearance: Present: no acute distress, well-nourished - EENT Eyes: Present: PERRL, EOM intact - Neck Neck: Present: supple, normal ROM - Respiratory Respiratory effort: normal Respiratory: bilateral: diminished, negative: rales, rhonchi, wheezing - Cardiovascular Rhythm: regular Heart Sounds: Present: S1 & S2 - Extremities Extremities: no ischemia, No edema - Abdominal General gastrointestinal: soft, non-tender, non-distended, normal bowel sounds - Integumentary Integumentary: Present: clear, warm - Psychiatric Psychiatric: appropriate mood/affect, cooperative - Neurologic Neurologic: other (residual weakness right side[old stroke] mild weakness lt side new CVA ) Results - Labs CBC & Chem 7: 09/06/17 10:45 09/06/17 10:45 Labs: Laboratory Last Values WBC 9.1 K/mm3 (4.5-11.0) 09/06/17 10:45 RBC 5.15 M/mm3 (3.65-5.03) H 09/06/17 10:45 Hgb 14.0 gm/dl (11.8-15.2) 09/06/17 10:45 Hct 43.2 % (35.5-45.6) 09/06/17 10:45 MCV 84 fl (84-94) 09/06/17 10:45 MCH 27 pg (28-32) L 09/06/17 10:45 MCHC 33 % (32-34) 09/06/17 10:45 RDW 14.7 % (13.2-15.2) 09/06/17 10:45 Plt Count 314 K/mm3 (140-440) 09/06/17 10:45 Lymph % (Auto) 29.6 % (13.4-35.0) 09/06/17 10:45 [place] % (Auto) 5.3 % (0.0-7.3) 09/06/17 10:45 Eos % (Auto) 1.0 % (0.0-4.3) 09/06/17 10:45 Baso % (Auto) 2.2 % (0.0-1.8) H 09/06/17 10:45 Lymph # 2.7 K/mm3 (1.2-5.4) 09/06/17 10:45 [place] # 0.5 K/mm3 (0.0-0.8) 09/06/17 10:45 Eos # 0.1 K/mm3 (0.0-0.4) 09/06/17 10:45 Baso # 0.2 K/mm3 (0.0-0.1) H 09/06/17 10:45 Seg Neutrophils % 61.9 % (40.0-70.0) 09/06/17 10:45 Seg Neutrophils # 5.6 K/mm3 (1.8-7.7) 09/06/17 10:45 PT 12.7 Sec. (12.2-14.9) 09/06/17 10:45 INR 0.91 (0.87-1.13) 09/06/17 10:45 APTT 30.4 Sec. (24.2-36.6) 09/06/17 10:45 Thrombin Time 15.9 Sec. (15.1-19.6) 09/06/17 10:45 Sodium 140 mmol/L (137-145) 09/06/17 10:45 Potassium 4.0 mmol/L (3.6-5.0) 09/06/17 10:45 Chloride 101.7 mmol/L (98-107) 09/06/17 10:45 Carbon Dioxide 24 mmol/L (22-30) 09/06/17 10:45 Anion Gap 18 mmol/L 09/06/17 10:45 BUN 9 mg/dL (9-20) 09/06/17 10:45 Creatinine 1.0 mg/dL (0.8-1.5) 09/06/17 10:45 Estimated GFR > 60 ml/min 09/06/17 10:45 BUN/Creatinine Ratio 9 % 09/06/17 10:45 Glucose 87 mg/dL (75-100) 09/06/17 10:45 POC Glucose 65 (70-105) L 09/06/17 22:52 Calcium 8.8 mg/dL (8.4-10.2) 09/06/17 10:45 Total Creatine Kinase 166 units/L (55-170) 09/07/17 10:50 CK-MB (CK-2) 2.6 ng/mL (0.0-4.0) 09/07/17 10:50 CK-MB (CK-2) Rel Index 1.5 (0-4) 09/07/17 10:50 Troponin T < 0.010 ng/mL (0.00-0.029) 09/07/17 10:50 Triglycerides 137 mg/dL (2-149) 09/08/17 07:03 Cholesterol 232 mg/dL (50-199) H 09/08/17 07:03 LDL Cholesterol Direct 179 mg/dL (50-130) H 09/08/17 07:03 HDL Cholesterol 35 mg/dL (40-59) L 09/08/17 07:03 Cholesterol/HDL Ratio 6.62 % 09/08/17 07:03
[2017-09-10] MEDS: PRAVACHOL PO SCH (22:27)
--- NOTE | 2017-09-11 00:59 | XRay Report ---
FINAL REPORT EXAM: XR KNEE 3V LT HISTORY: pain/trauma TECHNIQUE: Three views of the left knee were submitted. FINDINGS: There is mild narrowing of all 3 compartments of the knee. There is no evidence of fracture or joint effusion. There are dystrophic calcifications along the medial femoral condyle possibly related to remote ligamentous injury. The soft tissues otherwise are unremarkable. IMPRESSION: Mild tricompartmental arthritic changes. Dystrophic calcifications along the medial femoral condyle possibly related to remote ligamentous injury. No evidence of acute fracture or joint effusion.
[2017-09-11] MEDS: LOVENOX SUB-Q SCH (10:40)
[2017-09-11] MEDS: ASPIRIN PO SCH (10:41)
[2017-09-11] MEDS: KEPPRA PO SCH ×2 (10:41→22:34)
--- NOTE | 2017-09-11 17:25 | Progress Note ---
Assessment and Plan Assessment and plan: --left knee pain; x-ray left knee ;Mild tricompartmental arthritic changes, findings consistent with remote ligamentous injury, no acute abnormality noted . Advised supportive care, outpatient follow up with orthopedic surgeon for further evaluation and management --Acute CVA : Non-fluent aphasia. On admission, Telemetry neurologist was consulted, TPA was indicated but the family refused. MRI/MRA of head reveals 2 tiny foci of subacute ischemia in the left alex. Echocardiogram reveals normal EF of 50-55%. Neurology following the patient, scheduled PIA, as recommended by neurology PIA scheduled for tomorrow, discussed wi patient same, with rapid response S the --Recurrent CVA with residual weakness; neuro workup thus far reviewed, follow PIA --Hypertension : Well controlled Continue antihypertensive medications --History of pancreatic cancer; stable --History of CVA with residual right-sided weakness, PTOT --Seizure. Seizure precautions, continue current medications --Dyslipidemia; continue statin, low-cholesterol diet --Obesity with BMI of 35; counseling done advised diet modification and exercise as tolerated and weight reduction When medically stable --DC planning; outpatient PT versus at home and home health and PT at discharge Continue Physical therapy occupational therapy Plan of care reviewed with the patient and his fiance at the bedside Answered all their questions verbalized understanding History Interval history: Patient seen and examined in his room this morning medical records reviewed Patient's fiance is at the bedside No new events reported by nursing staff Patient feels better alert awake oriented 3 Vital signs reviewed Scheduled for PIA tomorrow Hospitalist Physical - Constitutional Vitals: Temp Pulse Resp BP Pulse Ox 98.1 F 81 18 121/88 97 09/11/17 08:14 09/11/17 14:00 09/11/17 08:14 09/11/17 08:14 09/11/17 10:00 General appearance: Present: no acute distress, well-nourished - EENT Eyes: Present: PERRL, EOM intact - Neck Neck: Present: supple, normal ROM - Respiratory Respiratory effort: normal Respiratory: bilateral: diminished, negative: rales, rhonchi, wheezing - Cardiovascular Rhythm: regular Heart Sounds: Present: S1 & S2 - Extremities Extremities: no ischemia, No edema - Abdominal General gastrointestinal: soft, non-tender, non-distended, normal bowel sounds - Integumentary Integumentary: Present: clear, warm - Psychiatric Psychiatric: appropriate mood/affect, cooperative - Neurologic Neurologic: other (residual left and right-sided weakness) Results - Labs CBC & Chem 7: 09/06/17 10:45 09/06/17 10:45 Labs: Laboratory Last Values WBC 9.1 K/mm3 (4.5-11.0) 09/06/17 10:45 RBC 5.15 M/mm3 (3.65-5.03) H 09/06/17 10:45 Hgb 14.0 gm/dl (11.8-15.2) 09/06/17 10:45 Hct 43.2 % (35.5-45.6) 09/06/17 10:45 MCV 84 fl (84-94) 09/06/17 10:45 MCH 27 pg (28-32) L 09/06/17 10:45 MCHC 33 % (32-34) 09/06/17 10:45 RDW 14.7 % (13.2-15.2) 09/06/17 10:45 Plt Count 314 K/mm3 (140-440) 09/06/17 10:45 Lymph % (Auto) 29.6 % (13.4-35.0) 09/06/17 10:45 [place] % (Auto) 5.3 % (0.0-7.3) 09/06/17 10:45 Eos % (Auto) 1.0 % (0.0-4.3) 09/06/17 10:45 Baso % (Auto) 2.2 % (0.0-1.8) H 09/06/17 10:45 Lymph # 2.7 K/mm3 (1.2-5.4) 09/06/17 10:45 [place] # 0.5 K/mm3 (0.0-0.8) 09/06/17 10:45 Eos # 0.1 K/mm3 (0.0-0.4) 09/06/17 10:45 Baso # 0.2 K/mm3 (0.0-0.1) H 09/06/17 10:45 Seg Neutrophils % 61.9 % (40.0-70.0) 09/06/17 10:45 Seg Neutrophils # 5.6 K/mm3 (1.8-7.7) 09/06/17 10:45 PT 12.7 Sec. (12.2-14.9) 09/06/17 10:45 INR 0.91 (0.87-1.13) 09/06/17 10:45 APTT 30.4 Sec. (24.2-36.6) 09/06/17 10:45 Thrombin Time 15.9 Sec. (15.1-19.6) 09/06/17 10:45 Sodium 140 mmol/L (137-145) 09/06/17 10:45 Potassium 4.0 mmol/L (3.6-5.0) 09/06/17 10:45 Chloride 101.7 mmol/L (98-107) 09/06/17 10:45 Carbon Dioxide 24 mmol/L (22-30) 09/06/17 10:45 Anion Gap 18 mmol/L 09/06/17 10:45 BUN 9 mg/dL (9-20) 09/06/17 10:45 Creatinine 1.0 mg/dL (0.8-1.5) 09/06/17 10:45 Estimated GFR > 60 ml/min 09/06/17 10:45 BUN/Creatinine Ratio 9 % 09/06/17 10:45 Glucose 87 mg/dL (75-100) 09/06/17 10:45 POC Glucose 65 (70-105) L 09/06/17 22:52 Calcium 8.8 mg/dL (8.4-10.2) 09/06/17 10:45 Total Creatine Kinase 166 units/L (55-170) 09/07/17 10:50 CK-MB (CK-2) 2.6 ng/mL (0.0-4.0) 09/07/17 10:50 CK-MB (CK-2) Rel Index 1.5 (0-4) 09/07/17 10:50 Troponin T < 0.010 ng/mL (0.00-0.029) 09/07/17 10:50 Triglycerides 137 mg/dL (2-149) 09/08/17 07:03 Cholesterol 232 mg/dL (50-199) H 09/08/17 07:03 LDL Cholesterol Direct 179 mg/dL (50-130) H 09/08/17 07:03 HDL Cholesterol 35 mg/dL (40-59) L 09/08/17 07:03 Cholesterol/HDL Ratio 6.62 % 09/08/17 07:03
[2017-09-11] MEDS ORDERED: AMBIEN PO PRN (18:40)
[2017-09-11] MEDS: PRAVACHOL PO SCH (22:33)
[2017-09-12] MEDS ORDERED: NACL 0.9% 1000 ML 1,000 ML IV SCH (09:00)
[2017-09-12] MEDS ORDERED: HURRICAINE ONE 20% TOPICAL SPRAY MM NR (09:00)
[2017-09-12] MEDS ORDERED: DIPRIVAN 10 MG/ML IV ONE ×3 (09:15)
[2017-09-12] MEDS ORDERED: XYLOCAINE MPF 2% ONE (09:16)
--- NOTE | 2017-09-12 09:30 | Anesthesia Consultation ---
Anesthesia Consult and Med Hx Date of service: 09/12/17 - Airway Anesthetic Teeth Evaluation: Poor (left bottom tooth is broken to the root) ROM Head & Neck: Adequate Mental/Hyoid Distance: Adequate Mallampati Class: Class III Intubation Access Assessment: Possibly Difficult - Pre-Operative Health Status ASA Pre-Surgery Classification: ASA3 Proposed Anesthetic Plan: MAC - Pulmonary Hx Asthma: No COPD: No Hx Pneumonia: No Hx Sleep Apnea: Yes - Cardiovascular System Hx Hypertension: Yes - Central Nervous System Hx Seizures: Yes CVA: Yes (recurrent stroke with right LE weakness) - Endocrine Hx End Stage Renal Disease: No - Other Systems Hx Cancer: Yes (pancreatic CA stage 2 (2014), chemo) Hx Obesity: Yes (BMI 35.7)
--- NOTE | 2017-09-12 09:33 | Anesthesia Day of Surgery ---
Anesthesia Day of Surgery - Day of Surgery Patient Examined: Yes Patient H&P Reviewed: Yes Patient is NPO: Yes
[2017-09-12] MEDS: KEPPRA PO SCH (13:57)
[2017-09-12] MEDS: ASPIRIN PO SCH (13:57)
[2017-09-12] MEDS: LOVENOX SUB-Q SCH (13:58)
--- NOTE | 2017-09-12 14:24 | Discharge Summary ---
Providers - Providers Date of Admission: 09/07/17 04:50 Date of discharge: 09/12/17 Attending physician: CHARISSA MAHMOOD 09/07/17 04:51 Occupational Therapy Evaluate and Treat [CONS] Routine Comment: Reason For Exam: Neuro deficits Physical Therapy Evaluation and Treat [CONS] Routine Comment: Reason For Exam: Neuro deficits 09/07/17 06:38 Consult to Physician [CONS] Routine Consulting Provider: PACO MODI Reason For Exam: cva Notified:: special education secretary pl call Primary care physician: SONIA OSCAR Hospitalization Reason for admission: left-sided weakness and slurring of speech Condition: Fair Pertinent studies: CT head without contrast; Chest x-ray; CTA chest; MRI brain; MRA of brain; Echocardiogram; PIA; Carotid Doppler; Left knee x-ray; Hospital course: 47-year-old male patient with significant history of previous CVA with residual right-sided weakness was admitted through emergency room with left-sided weakness and slurring of speech Patient was evaluated by attending neurologist, and recommended TPA however patient and family refused Patient was admitted had extensive neurological evaluation which is consistent with acute CVA with left-sided weakness Patient was evaluated by neurologist, recommended PIA in view of multiple strokes in a young man, TEEwas negative for any thrombus or shunt Evaluated by physical therapy occupational therapy today Symptoms significantly improved with residual weakness on left side as well as for CVA on the right side PT recommended outpatient versus home physical therapy Patient and family opted for outpatient physical therapy The day of discharge patient was comfortable no new complaints Vital signs are stable. The physical examination is unremarkable Cleared by neurology, advised follow primary care physician and neurology upon discharge per schedule Patient is hemodynamically and clinically stable at the time of discharge Discharge diagnosis: --left knee pain; x-ray left knee ; remote ligamentous injury, --Acute CVA : Non-fluent aphasia. --Recurrent CVA with residual weakness; --Hypertension : Well controlled --History of pancreatic cancer; stable --History of old CVA with residual right-sided weakness, --Seizure. Seizure precautions, --Dyslipidemia; continue statin, --Obesity with BMI of 35; counseling done a Disposition: - TO HOME OR SELFCARE Time spent for discharge: 32 min Core Measure Documentation - Palliative Care Palliative Care/ Comfort Measures: Not Applicable - Core Measures Any of the following diagnoses?: stroke - Stroke Discharge Requirements Statin for LDL = or >70 mg/dl on DC: Yes Anticoag for atrial fib/atrial flutter: Not Applicable (not in A. fib or flutter ) Antithrombotic for ischemic stroke: Yes Exam - Constitutional Vitals: Temp Pulse Resp BP Pulse Ox 98.7 F 83 18 138/89 98 09/12/17 11:29 09/12/17 11:29 09/12/17 12:22 09/12/17 11:29 09/12/17 12:22 General appearance: Present: no acute distress, well-nourished - EENT Eyes: Present: PERRL, EOM intact - Neck Neck: Present: supple, normal ROM - Respiratory Respiratory effort: normal Respiratory: bilateral: diminished, negative: rales, rhonchi, wheezing - Cardiovascular Rhythm: regular Heart Sounds: Present: S1 & S2 - Extremities Extremities: no ischemia, No edema - Abdominal General gastrointestinal: Present: soft, non-tender, non-distended, normal bowel sounds - Integumentary Integumentary: Present: clear, warm - Musculoskeletal Musculoskeletal: right sided weakness, left sided weakness - Psychiatric Psychiatric: appropriate mood/affect, cooperative - Neurologic Neurologic: CNII-XII intact (residual weakness old right-sided, new left-sided) Plan Activity: advance as tolerated, fall precautions Diet: low cholesterol, low salt Special Instructions: physical therapy Additional Instructions: If you have any new episodes of weakness, contact M.D. or go to emergency room Follow up with: SONIA OSCAR MD [Primary Care Provider] - 3-5 Days MARIA LUISA BIRMINGHAM MD [Staff Physician] - 7 Days Prescriptions: AtorvaSTATin [Lipitor] 40 mg PO QHS #30 tab Clopidogrel [Plavix] 75 mg PO QDAY #30 tablet levETIRAcetam [Keppra TAB] 500 mg PO BID #60 tablet Lisinopril [Zestril TAB] 25 mg PO DAILY #30 tablet oxyCODONE /ACETAMINOPHEN [Percocet 5/325] 1 tab PO QHS #7 tablet oxyCODONE /ACETAMINOPHEN [Percocet 5/325] 1 tab PO QHS #7 tablet Other Discharge Orders: Physicial Therapy (Amb) Location: None Selected
[2017-09-12 16:49] VITALS: BP 120/84
--- NOTE | 2017-09-12 17:11 | Vascular Lab Report ---
CAROTID DUPLEX STUDY: RIGHT PSVEDV CCA PROX:[id number] CCA DIST:7621 ICA PROX:4614 ICA MID:5122 ICA DIST:5729 ECA: 67 VERT: 54 19 LEFT PSVEDV CCA PROX:9119 CCA DIST:6520 ICA PROX:4312 ICA MID:5324 ICA DIST:9043 ECA: 56 VERT: 34 13 REASON FOR EXAM: Stroke. COMMENTS ON THE RIGHT: Doppler frequency analysis is consistent with 16 to 49 percent diameter reduction of the internal carotid artery. Minimal amount of plaque is seen. The common carotid artery is patent. The external carotid artery is patent. The vertebral artery has antegrade flow. COMMENTS ON THE LEFT: Doppler frequency analysis is consistent with 16 to 49 percent diameter reduction of the internal carotid artery. Minimal amount of plaque is seen. The common carotid artery is patent. The external carotid artery is patent. The vertebral artery has antegrade flow. IMPRESSION: Less than 50% diameter reduction in the internal carotid arteries bilaterally.
== END 2017-09-12 18:14 | disposition home or self-care (01) | DRG 65 ==
LOC: ED 22:34 → 4A 09-07 04:50
PROVIDERS: ADMIT Internal Medicine; ATTEND Internal Medicine
DX: I63.9 Cerebral infarction, unspecified (principal); Z68.43 Body mass index [BMI] 50.0-59.9, adult; I69.351 Hemiplegia and hemiparesis following cerebral infarction affecting right dominant side; E66.9 Obesity, unspecified; M25.562 Pain in left knee; I10 Essential (primary) hypertension; R47.01 Aphasia; R56.9 Unspecified convulsions; E78.5 Hyperlipidemia, unspecified; G47.30 Sleep apnea, unspecified; R07.9 Chest pain, unspecified; Z71.3 Dietary counseling and surveillance; Z79.899 Other long term (current) drug therapy; Z82.49 Family history of ischemic heart disease and other diseases of the circulatory system; Z85.07 Personal history of malignant neoplasm of pancreas; Z88.0 Allergy status to penicillin; Z83.3 Family history of diabetes mellitus; Z82.3 Family history of stroke
CPT/HCPCS: 36415; 70450; 70544; 70551; 71045; 71275; 80048; 80061; 82550; 82553; 82962; 84484; 85025; 85610; 85670; 85730; 93005; 93010; 93306; 93312; 93320; 93325; 93880; 96374; 96375; A9270-GY; G8978-GP; G8979-GP; J1650; J2270; J2405; J2704; J3010; J7030; Q9967